=== PATIENT | female | born 1960 | race Caucasian/White ===

== ENCOUNTER 2017-12-09 12:47 | Emergency (ER) | payer OTHER ==
[2017-12-09] MEDS ORDERED: DIAZEPAM 2 MG TAB PO (13:30)
[2017-12-09] MEDS: oxyCODONE/ACETAMINOPHEN 10 MG/325 MG TAB PO (13:44)
[2017-12-09] MEDS: DEXAMETHASONE SOD PHOS 4 MG/ML VIAL IM (13:44)
== END 2017-12-09 15:03 | disposition home or self-care (01) ==
LOC: PHEFT 12:47
DX: S16.1XXA Strain of muscle, fascia and tendon at neck level, initial encounter (principal); E03.9 Hypothyroidism, unspecified; Z79.899 Other long term (current) drug therapy; X50.0XXA Overexertion from strenuous movement or load, initial encounter
CPT/HCPCS: 96372; 99283-25